=== PATIENT | male | born 1955 | race Caucasian/White ===

== ENCOUNTER 2017-06-21 15:28 | Emergency (ER) | payer OTHER ==
[2017-06-21] MEDS ORDERED: BOOSTRIX IM ONE (18:33)
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
--- NOTE | 2017-06-21 18:42 | XRay Report ---
FINAL REPORT EXAM: XR FOOT 3+V RT HISTORY: fall rt foot pain TECHNIQUE: Three views of the right foot PRIORS: None. FINDINGS: There is hallux valgus and metatarsus primus varus with associated hypertrophic change of the 1st metatarsal head, (bunion). Otherwise, the joint spaces are well-preserved. The bones are normally aligned and mineralized. There is no evidence of acute fracture. The soft tissues are unremarkable. There are plantar and Achilles calcaneal spurs. IMPRESSION: No evidence of acute fracture or subluxation. Bunion
--- NOTE | 2017-06-21 18:44 | XRay Report ---
FINAL REPORT EXAM: XR KNEE 3V LT HISTORY: Fall lt knee pain TECHNIQUE: Three views of the left knee PRIORS: None. FINDINGS: The bones are normally aligned and mineralized. The joint spaces are well-preserved. There is no evidence of acute fracture. The soft tissues are unremarkable. IMPRESSION: No evidence of acute fracture or subluxation.
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
--- NOTE | 2017-06-21 20:09 | Cat Scan Report ---
FINAL REPORT EXAM: CT CERVICAL SPINE WO CON HISTORY: fall TECHNIQUE: Helical axial CT imaging of the cervical spine. Images are reconstructed in the sagittal and coronal planes. PRIORS: None. FINDINGS: The vertebral bodies have normal height and alignment. There is no evidence of fracture or subluxation. There is mild multilevel degenerative disc disease. The paraspinous soft tissues are unremarkable. IMPRESSION: No evidence of acute fracture or subluxation.
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
[2017-06-21] MEDS ORDERED: MOTRIN PO ONE (20:58)
[2017-06-21 21:40] VITALS: BP 136/90
== END 2017-06-21 21:00 | disposition home or self-care (01) ==
LOC: ED 15:28
DX: S83.8X2A Sprain of other specified parts of left knee, initial encounter (principal); E11.9 Type 2 diabetes mellitus without complications; W18.39XA Other fall on same level, initial encounter; Y93.01 Activity, walking, marching and hiking; Y99.8 Other external cause status; Y92.480 Sidewalk as the place of occurrence of the external cause
CPT/HCPCS: 70450; 72125; 90471; 90715